=== PATIENT | female | born 1955 | race Caucasian/White ===

== ENCOUNTER 2016-11-07 16:35 | Emergency (ER) | payer BC ==
--- OUTSIDE RECORDS SUMMARY | 2016-11-07 17:43 | XMS REPORT | Continuity of Care Document ---
:1955 Author Organization [facility] [place] [address] Care Team Providers Name Role Phone Iris Tesfaye Primary Care Provider [phone] Source Comments This disclosure is being made pursuant to the [employer] program and maynot contain all information available regarding this patient.[facility] Active Allergies and Adverse Reactions Allergen Noted Date Severity Reactions Comments Cephalexin 09/26/2016 Low Rash Erythromycin 09/26/2016 Unknown Metoprolol Succinate Er 09/26/2016 Unknown Motrin 09/26/2016 Unknown Statins 09/26/2016 Unknown Current Medications Be aware that medications may not be up to date as of this document. Alwaysverify current medications with the patient. Prescription Sig. Disp. Refills Start Date End Date Status acetaminophen-codeine Take 1 tablet Active (TYLENOL #3) 300-30 MG by mouth every per tablet 6 (six) hours as needed for Pain. allopurinol (ZYLOPRIM) Take 100 mg by Active 100 MG tablet mouth daily. Alpha-Lipoic Acid 200 MG Take 200 mg by Active CAPS mouth daily. ALPRAZolam (XANAX) 0.5 MG Take 0.5 mg by Active tablet mouth nightly as needed for Sleep. 1/2-1 tab twice daily prn aspirin 81 MG tablet Take 81 mg by Active mouth daily. B Complex Vitamins (B Take 1 tablet Active COMPLEX PO) by mouth daily. DULoxetine (CYMBALTA) 60 Take 60 mg by Active MG capsule mouth daily. furosemide (LASIX) 40 MG Take 40 mg by Active tablet mouth daily. gabapentin (NEURONTIN) Take 300 mg by Active 300 MG capsule mouth. Take 2 capsules three times daily glimepiride (AMARYL) 4 MG Take 4 mg by Active tablet mouth. Take one-half tablet twice daily hydrALAZINE (APRESOLINE) Take 100 mg by Active 100 MG tablet mouth 2 (two) times daily. hydrochlorothiazide Take 25 mg by Active (HYDRODIURIL) 25 MG mouth daily. tablet canagliflozin (INVOKANA) Take 100 mg by Active 100 MG tablet mouth every morning before breakfast. potassium chloride CR Take 8 mEq by Active (MICRO-K) 8 MEQ CR mouth daily. capsule insulin glargine (LANTUS) Inject 24 Units Active 100 UNIT/ML injection - into the skin vial nightly. metFORMIN (GLUCOPHAGE) Take 500 mg by Active 500 MG tablet mouth 2 (two) times daily with meals. Multiple Chew by mouth Active Vitamins-Minerals daily. (MULTIVITAMINS) CHEW nystatin (MYCOSTATIN) Apply Active cream topically 2 (two) times daily. to affected area. Continue until rash has resovled for 2-3 days. oxygen Inhale 2 L/min Active into the lungs continuous. Ascorbic Acid (VITAMIN C) Take 500 mg by Active 500 MG tablet mouth daily. ezetimibe (ZETIA) 10 MG Take 10 mg by Active tablet mouth daily. vitamin B-12 Take 500 mcg by Active (CYANOCOBALAMIN) 500 MCG mouth daily. tablet ezetimibe (ZETIA) 10 MG Take 1 tablet 30 tablet 11 10/02/2016 Active tablet by mouth nightly. Active Problems Problem Noted Date Mixed hyperlipidemia 09/27/2016 Essential hypertension 09/27/2016 Morbid obesity with BMI of 50.0-59.9, adult (HCC) 09/27/2016 Uncontrolled type 2 diabetes with neuropathy (HCC) 09/27/2016 Most Recent Encounters Date Type Specialty Providers Description 11/02/2016 Orders Only Endocrinology Lara Lockett, Uncontrolled type 2 MD diabetes with neuropathy (HCC) 10/30/2016 Erroneous Endocrinology Lara Lockett, ERRONEOUS Telephone MD ENCOUNTER--DISREGARD Encounter (Primary Dx) 10/30/2016 Telephone Endocrinology Kelly Guzman, Results PRESSING DEPARTMENT SUPERVISOR 10/20/2016 Telephone Endocrinology Rowena Keita RN 10/02/2016 Refill Family Medicine Va Gaines RMA 09/27/2016 Initial consult Endocrinology Lara Lockett, Uncontrolled type 2 MD diabetes with neuropathy (HCC) (Primary Dx); Morbid obesity with BMI of 50.0-59.9, adult ([facility]); Essential hypertension; Mixed hyperlipidemia 09/26/2016 Abstract Endocrinology Chris Beckett, MEAT PASSER 09/26/2016 Abstract Endocrinology Kelly Guzman LPN 09/26/2016 Abstract Endocrinology Kelly Guzman LPN Immunizations Name Dates Previously Given Next Due Hepatitis B 09/28/1981 INFLUENZA, INACTIVATED, QUADRIVALENT, 3 YEARS AND 03/31/2016 older, single dose syringe/vial Pneumococcal Polysaccharide-23 07/31/2013 Social History Tobacco Use Types Packs/Day Years Used Date Never Smoker Smokeless Tobacco: Never Used Tobacco Cessation:Counseling Given: No Comments: Alcohol Use Drinks/Week oz/Week Comments No Last Filed Vital Signs Vital Sign Reading Time Taken Blood Pressure 116/65 09/27/2016 9:38 AM [employer]BER Pulse 76 09/27/2016 9:38 AM [employer]BER Temperature - - Respiratory Rate - - Height 1.664 m (5' 5.5") 09/27/2016 9:38 AM [employer] Weight 139.254 kg (307 lb) 09/27/2016 9:38 AM [employer]BER Body Mass Index 50.29 09/27/2016 9:38 AM [employer] Oxygen Saturation - - Plan of Care Patient Goal Type Goal Blood Pressure Blood Pressure below 140/90 Result Component HEMOGLOBIN A1C < 7.0 Date Type Specialty Providers Description 02/06/2017 Appointment Endocrinology Lara Lockett MD [address] [place] [address] [phone] (Fax) Health Maintenance Due Date Last Done Comments Lab-Lipids 1955 Eye (Ophthalmology) Exam 11/17/1967 Lab-Urine Microalbumin 11/17/1967 Hepatitis C Screening 11/17/1975 Tetanus/Pertussis (1 - Tdap) 1976 Pap Smear 1978 Colonoscopy 11/17/2007 Mammogram 11/17/2007 Well Adult Visit 11/17/2007 LAB-HgA1C 07/28/2016 04/28/2016 Foot Exam 09/27/2017 09/27/2016 Pneumococcal Medium Risk 19-64 yo Completed 07/31/2013 Influenza Immunization Completed 03/31/2016 Results from Last 3 Months 25 Hydroxy Vitamin D (10/19/2016)
--- OUTSIDE RECORDS SUMMARY | 2016-11-07 17:43 | XMS REPORT | Continuity of Care Document ---
:1955 Author Organization [facility] ([facility]) Address [address] [place] [address] Phone [phone] Care Team Providers Name Role Phone Iris Tesfaye Primary Care Provider [phone] Source Comments This disclosure is being made pursuant to the Care Everywhere program, applicable federal and state laws, and may not contain all informaitonavailable regarding this patient.[facility] ([facility]) Active Allergies and Adverse Reactions Allergen Noted Date Severity Reactions Comments Cephalexin 09/04/2016 Pruritus Erythromycin 09/04/2016 Stomach Pain Ibuprofen 09/04/2016 OTHER Lactic acid build. Metoprolol 09/04/2016 Unknown Prednisone 09/04/2016 OTHER Increased blood sugar. Jenlgwz-Pdv-Udi Reductase 09/04/2016 OTHER Muscle pain Inhibitors Current Medications Prescription Sig. Disp. Refills Start End Status Date Date acetaminophen-codeine Take 1 tablet by Active 300-30 mg per tablet mouth every 6 hours as needed. allopurinol 100 mg Take 100 mg by Active tablet mouth daily. alpha lipoic acid 100 Take 200 mg by Active mg capsule mouth 2 times daily. ALPRAZolam 0.5 mg Take 0.5 mg by Active tablet mouth at bedtime as needed. aspirin 81 mg EC Take 81 mg by Active tablet mouth every evening. DULoxetine 60 mg XR Take 60 mg by Active capsule mouth daily. furosemide 40 mg Take 40 mg by Active tablet mouth daily. gabapentin 300 mg Take 600 mg by Active capsule mouth 3 times daily. glimepiride 4 mg Take 4 mg by Active tablet mouth every evening. hydrALAZINE 100 mg Take 100 mg by Active tablet mouth 2 times daily. hydroCHLOROthiazide 25 Take 25 mg by Active mg tablet mouth daily. canagliflozin Take 100 mg by Active (INVOKANA) 100 mg mouth daily. tablet insulin glargine Inject 27 Units Active (LanTUS) 100 unit/mL subcutaneously injection vial daily. metFORMIN 500 mg Take 1,000 mg by Active tablet mouth 2 times daily. nystatin 100,000 Apply topically 2 Active unit/g cream times daily as needed. ascorbic acid (vitamin Take 1,000 mg by Active C) (VITAMIN C) 500 mg mouth 3 times tablet daily. ezetimibe 10 mg tablet Take 10 mg by Active mouth every evening. cholecalciferol Take 4,000 Units Active (VITAMIN D3) 2,000 by mouth 2 times unit tablet daily. potassium chloride 8 Take 8 mEq by Active mEq XR cap mouth daily. cyanocobalamin Take 1 tablet by Active (vitamin B-12) 2,500 mouth 2 times mcg chew daily. thiamine (VITAMIN B-1) Take 100 mg by Active 100 mg tablet mouth daily. VITAMIN B COMPLEX (B Take 1 capsule by Active COMPLEX PO) mouth daily. NUT.TX.GLUC.INTOLER,LA Take by mouth 2 Active C-FR,SOY (GLUCERNA times daily. THERAPEUTIC NUTRITION PO) HYDROmorphone 2 mg Take 1-2 tablets 60 tablet 0 11/03/19 Active tablet (2-4 mg total) by 17 mouth every 4 hours as needed for pain. docusate 100 mg Take 1 capsule 60 capsule 11 11/04/19 Active capsule (100 mg total) by 17 mouth 2 times daily as needed. sennosides 8.6 mg Take 1 tablet 60 tablet 11 11/04/19 Active tablet (8.6 mg total) by 17 mouth 2 times daily. vitamin B complex Take 1 tablet by Discontinued tablet mouth daily. 017 cyanocobalamin Take 100 mcg by Discontinued (cyanocobalamin) 100 mouth daily. 017 mcg tablet potassium chloride 10 Take 8 mEq by Discontinued mEq XR tablet mouth daily. 017 multivitamin tablet Take 1 tablet by Discontinued mouth daily. 017 oxygen O-15 (O-15 O2) Use by inhalation Discontinued once. 017 potassium gluconate Take 595 mg by Discontinued 595 mg tablet mouth daily. 017 Active Problems Problem Noted Date Abdominal pannus 09/04/2016 BiPAP (biphasic positive airway pressure) dependence 09/04/2016 Hypertension 09/04/2016 Type 2 diabetes mellitus 09/04/2016 Hyperlipemia 09/04/2016 Morbid obesity 09/04/2016 Gout 09/04/2016 JOYCE treated with BiPAP 09/04/2016 Most Recent Encounters Date Type Specialty Providers Description 11/06/2016 Telephone Manager Mobile Rachell Swanson 11/06/2016 Telephone Manager Mobile Rachell Swanson 11/06/2016 Nurse Triage Care Coordination Vicky Borges Chief Comp: TAYLOR Gracia RNintelligence applications Follow-up Call 11/03/2016 Pharmacy Visit 11/01/2016 [facility] Evaristo, Dx: Abdominal pannus - Encounter Inpatient - Adult MD Guy (Primary Dx) 11/03/2016 11/01/2016 Surgery General Surgery ANDRY Loera PANNICULECTOMY MD Guy 10/13/2016 Office Visit Srg Mario Loera Dx: Abdominal apryl Tovar MD (Primary Dx) 09/04/2016 Hospital Anesthesiology Azucena Stearns Chief Comp: Patient Encounter MD Kaylee Reported Reason For Visit 09/04/2016 Office Visit Srg Mario Loera Dx: Abdominal apryl Tovar MD (Primary Dx) 09/04/2016 Anesthesia Event General Surgery Azucena Stearns MD Social History Tobacco Use Types Packs/Day Years Used Date Never Smoker Smokeless Tobacco: Never Used Tobacco Cessation:Counseling Given: Yes Comments: Alcohol Use Drinks/Week oz/Week Comments No Last Filed Vital Signs Vital Sign Reading Time Taken Blood Pressure 129/65 11/03/2016 9:06 AM CDT Pulse 83 11/03/2016 9:06 AM CDT Temperature 36.6 C (97.9 F) 11/03/2016 9:06 AM CDT Respiratory Rate 16 11/03/2016 1:51 PM CDT Height 1.626 m (5' 4") 11/01/2016 5:25 PM CDT Weight 132.3 kg (291 lb 10.7 oz) 11/03/2016 10:00 AM CDT Body Mass Index 50.04 11/03/2016 10:00 AM CDT Oxygen Saturation 93% 11/03/2016 9:06 AM CDT Plan of Care Date Type Specialty Providers Description 11/13/2016 Appointment Srg Guy Acosta MD Chief Comp: Patient [address] [place] [address] [phone] (Fax) Health Maintenance Due Date Last Done Comments HCV Screening 1955 Hepatitis B Vaccine (1 of 3 - Primary Series) 1955 Tdap Vaccine 1968 DIABETIC: Cholesterol 11/17/1975 Diabetic: Hdl 11/17/1975 Diabetic: Ldl 11/17/1975 DIABETIC: Microalbumin 11/17/1975 DIABETIC: Triglycerides 11/17/1975 MMR Vaccine 11/17/1975 Td Vaccine 11/17/1975 Pneumococcal Vaccine (1 of 1 - PPSV23) 1976 Cervical Cancer Screening 11/17/1987 Mammogram 1997 Colonoscopy 2007 DIABETIC: Foot Exam 09/04/2016 DIABETIC: Retinal Eye Exam 09/04/2016 Influenza Vaccine: Seasonal (Season Ended) 2017 DIABETIC: Hemoglobin A1C 03/04/2017 09/04/2016 Procedures from Last 3 Months Procedure Name Priority Date/Time Associated Diagnosis Comments PLAS PANNICULECTOMY 11/01/2016 11:14 AM CDT Abdominal pannus Case Notes 2nd case start Results from Last 3 Months BLOOD GLUCOSE, BEDSIDE (11/03/2016 11:27 AM)Only the most recent of12 resultswithin the time period is included. Component Value Range Glucose, Accu-Chek 213(H) 65-99 mg/dL Specimen Blood, capillary CHEST - AP/PA (11/02/2016 9:21 PM) Impressions Findings / Impression: Patchy airspace disease in the bilateral bases/paramedian lungs, which is typical for atelectasis although underlying infection cannot be excluded. Short-term interval follow-up radiograph may be useful to demonstrate resolution. Possible small bilateral effusions. No large pneumothoraces. Mild cardiomegaly, without pulmonary vascular congestion. Narrative Procedure: CHEST - AP/PA Technique: Portable AP chest radiograph Comparison: None Clinical Indication: Postoperative fever Procedure Note Simon, Incoming Imaging Results - SunNov 03, 2016 10:18 AM CDT Procedure: CHEST - AP/PA Technique: Portable AP chest radiograph Comparison: None Clinical Indication: Postoperative fever IMPRESSION Findings / Impression: Patchy airspace disease in the bilateral bases/paramedian lungs, which is typical for atelectasis although underlying infection cannot be excluded. Short-term interval follow-up radiograph may be useful to demonstrate resolution. Possible small bilateral effusions. No large pneumothoraces. Mild cardiomegaly, without pulmonary vascular congestion. URINALYSIS (11/02/2016 8:46 PM) Component Value Range Color, Urine Yellow Straw, Pale Yellow, Yellow, Clear, None Clarity, Urine Clear Clear pH, Urine 5.0 <9.0 Glucose, Urine 4+(A) Negative Blood, Urine Negative Negative Ketones, Urine Negative Negative Protein, Urine Negative Negative Urobilinogen, Urine Normal Normal Bilirubin, Urine Negative Negative Leukocyte Esterase, Urine Negative Negative Nitrite, Urine Negative Negative Spec [place], Urine 1.010 1.000-1.030 Specimen Urine CREATININE-URINE, RANDOM (11/02/2016 8:26 AM) Component Value Range Creatinine, Urine, Random 233.4 mg/dL Specimen Urine SODIUM-URINE,RANDOM (11/02/2016 8:26 AM) Component Value Range Sodium, Urine, Random <10 mEq/L Specimen Urine BASIC METABOLIC PANEL W/ CALCIUM (CHEM 8) (11/02/2016 7:47 AM) Component Value Range Sodium 137 135-145 mEq/L Potassium 4.3 3.5-5.0 mEq/L Chloride 97 95-107 mEq/L CO2 28 22-29 mEq/L BUN 28(H) 10-20 mg/dL Creatinine 1.2(H)Comment: 0.5-1.0 mg/dL Creatinine switched to enzymatic method on 12/06/2010.GFR equation switched to IDMS-traceable MDRD equation on 12/06/2010. Calculated GFR values are not valid in clinical settings where serum creatinine is changing. Glucose 166(H)Comment: 65-99 mg/dL The Expert Committee on the Diagnosis and Classification of Diabetes has defined impaired fasting glucose as greater than or equal to 100 mg/dL but less than 126 mg/dL.(Diabetes Care 28 (Suppl 1)S41,2005) Calcium 8.2(L) 8.5-10.5 mg/dL Anion Gap 12 mEq/L Calculated GFR 46(L) >60 mL/min/1.73 m2 Specimen Blood CBC (COMPLETE BLOOD COUNT) (11/02/2016 7:47 AM)Only the most recent of2 resultswithin the time period is included. Component Value Range WBC Count 16.0(H) 3.7-10.5 K/MM3 RBC Count 3.61(L) 4.00-5.20 M/MM3 Hemoglobin 11.0(L) 11.9-15.5 g/dL Hematocrit 35 35-47 % MCV (Mean Corpuscular Volume) 97 82-99 FL MCH (Mean Corpuscular Hemoglobin) 31 25-35 PG MCHC (Mean Corpuscular Hemoglobin Concentration) 32 32-36 % Platelet Count 262 150-400 K/MM3 MPV (Mean Platelet Volume) 9.4 9.4-12.3 FL RBC Dist Width-STD 50.8(H) 36.4-46.3 FL RBC Distrib Width 14.5 9.0-14.5 % Nucleated RBC 0 /100 WBC Specimen Whole Blood DIFFERENTIAL (11/01/2016 12:21 PM) Component Value Range % Neutrophils-Auto Diff 63.0 % Neutrophils-Auto Diff 3770 2414-2336 /MM3 % Lymphocytes-Auto Diff 27.5 % Lymphocytes-Auto Diff 1897 943-0402 /MM3 % Monocytes-Auto Diff 6.8 % Monocytes-Auto Diff 410 130-860 /MM3 % Eosinophils-Auto Diff 1.7 % Eosinophils-Auto Diff 100 40-390 /MM3 % Basophils 0.7 % Basophils-Auto Diff 40 10-136 /MM3 % Immature Granulocytes-Auto Diff 0.3 % Immature Granulocytes-Auto Diff 20 /MM3 Specimen Whole Blood CBC (COMPLETE BLOOD COUNT) (11/01/2016 12:21 PM) Component Value Range WBC Count 6.0 3.7-10.5 K/MM3 RBC Count 3.27(L) 4.00-5.20 M/MM3 Hemoglobin 10.2(L) 11.9-15.5 g/dL Hematocrit 31(L) 35-47 % MCV (Mean Corpuscular Volume) 96 82-99 FL MCH (Mean Corpuscular Hemoglobin) 31 25-35 PG MCHC (Mean Corpuscular Hemoglobin Concentration) 33 32-36 % Platelet Count 201 150-400 K/MM3 MPV (Mean Platelet Volume) 9.6 9.4-12.3 FL RBC Dist Width-STD 48.9(H) 36.4-46.3 FL RBC Distrib Width 13.9 9.0-14.5 % Nucleated RBC 0 /100 WBC Specimen Whole Blood TYPE AND SCREEN (BLOOD TYPE(ABORH) AND RBC ANTIBODY SCREEN) (11/01/2016 12:21 PM ) Component Value Range ABORH O Positive Specimen Expiration Date 2016-11-04 Antibody Screen Negative Specimen Blood CBC WITH DIFFERENTIAL (11/01/2016 12:21 PM) Specimen Whole Blood Narrative The following orders were created for panel order CBC WITH DIFFERENTIAL. Procedure Abnormality Status --------- ------ CBC (COMPLETE BLOOD COUNT)[[id number]] AbnormalFinal result DIFFERENTIAL[[id number]] Final result Please view results for these tests on the individual orders. HEMOGLOBIN A1C (09/04/2016 1:11 PM) Component Value Range Hemoglobin A1c 7.8(H)Comment: 4.8-6.0 % Glycemic Control Guidelines: Non-diabetic <6% Goal <7% Therapeutic Action >8% Estimated Average Glucose 177Comment: mg/dL The estimated average glucose (eAG) calculated from the HbA1c changed on 18/03.See Laboratory Bulletins in the Department of Pathology Laboratory Services Handbook for a full discussion.Not e that the new calculated glucose will now be lower.The A1c result is unchanged. Specimen Whole Blood
--- NOTE | 2016-11-07 18:00 | ERNOTE ---
Medical Problem HPI - General Chief Complaint: Screening, Suture/Wound Time Seen by Provider: 11/07/16 17:35 Source: patient, family Exam Limitations: no limitations - Immun/Allergies/Home Medications Immunizations: IMMUNIZATION HX Immunizations Up to Date Yes History of Influenza Vaccine Yes Hx Pneumococcal Vaccination Yes Allergies/Adverse Reactions: Allergies Rnggzoe-Ksh-Eub Reductase Inhibitor Allergy (Severe, Verified 11/07/16 17:22) Other muscle cramps cephalexin Allergy (Mild, Verified 11/07/16 17:27) Hives ibuprofen Adverse Reaction (Intermediate, Verified 11/07/16 17:22) Other lactic acid build up azithromycin Adverse Reaction (Mild, Verified 11/07/16 17:21) Nausea erythromycin base Adverse Reaction (Mild, Verified 11/07/16 17:27) Nausea prednisone Adverse Reaction (Mild, Verified 11/07/16 17:22) Other hyperglycemia - History of Present History Narrative: Patient had a recent recent Panniculectomy done at [facility] and ahead for Hussain-Han drains put in place. Drain #1 and now appears to be nonfunctional although the other 4 drains were only having trace amounts of serosanguineous fluid from them. Pt denies any complaint, she is simply concerned that the drain is no longer working. Timing: constant Review of Systems - Review of Systems Constitutional: Present: See HPI EYE: Present: no symptoms reported ENT: Present: no symptoms reported Respiratory: Present: no symptoms reported Cardiology: Present: no symptoms reported Gastrointestinal/Abdominal: Present: other - recent surgery on her pannus Genitourinary: Present: no symptoms reported Musculoskeletal: Present: no symptoms reported Skin: Present: no symptoms reported Neurological: Present: no symptoms reported Endocrine: Present: no symptoms reported Hematologic/Lymphatic: Present: no symptoms reported Psych: Present: no symptoms reported - Patient's Past Medical History Patient History - Medical: Diabetes Type 2 Insulin Dependent, Obesity Patient History - Cardiac/Respiratory: Hypertension, Hyperlipidemia, CPAP/BiPAP Home Use Patient History - Cancer: Breast Patient History - Surgical Procedures: Cancer Surgery, Cholecystectomy, T & A Additional Info: recent panniculectomy Patient History - Other: None - Social History Living Situations: home Abuse History: No History of abuse Psych History: Hx of Anxiety, Hx of Depression Smoking Status: Never smoker Have you smoked in the past 12 months: No Do you dip or chew tobacco: No Alcohol Use: none Drug Use: none - Immunizations Immunizations Up to Date: Yes Hx Pneumococcal Vaccination: Yes History of Influenza Vaccine: Yes Physical Exam - Physical Exam General Appearance: Present: wd/wn, alert, no apparent distress Eye Exam: Normal inspection: bilateral, PERRL: bilateral Ears, Nose, Throat: Present: normal ENT inspection, H, normal pharynx Neck: Present: normal inspection, nontender Respiratory: Present: no respiratory distress, normal breath sounds, no accessory muscle use, chest nontender, lungs clear Cardiovascular/Chest: Present: regular rate, rhythm, no murmur, normal peripheral pulses Gastrointestinal/Abdominal: Present: normal bowel sounds, nontender, nondistended, soft, no organomegaly, other - healing wound sites without any infection noted. Rectal Exam: Present: deferred Back Exam: Present: normal inspection, normal range of motion Extremity Exam: Present: normal inspection, non-tender, no edema, normal range of motion Neurological Exam: Present: alert, oriented, normal mood/affect Skin Exam: Present: normal color, warm/dry Lymphatic Exam: Present: no adenopathy ED Progress - Vital Signs Patient's Vital Signs:: I have reviewed the patient's vital signs. Vital Signs: Vital Signs 11/07/16 17:15 Temperature 36 C L Pulse Rate 89 Respiratory 16 Rate Blood Pressure 125/65 O2 Sat by Pulse 89 L Oximetry - Progress/Reassessment Chief Complaint: Screening, Suture/Wound Plan - Plan Plan: The drain tube appears to be nearly pulled out, however it was nearly done draining anyway. We will leave it out and have her talk to the of [place] about pulling it out the small remaining distance. Departure - Departure Clinical Impression: Post-operative complication Qualifiers: Surgical complication system/body Area: skin Surgical complication type: other Qualified Code(s): L76.82 - Other postprocedural complications of skin and subcutaneous tissue Disposition: Home self-care Instructions: Tunneled Catheter Insertion, Care After Referrals: Sebastian Middleton MD [Primary Care Provider] -
[2016-11-07 18:47] VITALS: BP 122/65
== END 2016-11-07 18:09 | disposition home or self-care (01) ==
LOC: ER 16:35
DX: L76.82 Other postprocedural complications of skin and subcutaneous tissue (principal); Z85.3 Personal history of malignant neoplasm of breast

== ENCOUNTER 2017-03-25 20:19 | Emergency (ER) | payer BC ==
[2017-03-25 20:38] VITALS: BP 148/75
[2017-03-25] MEDS ORDERED: HYDROcodone/ACETAMINOPHEN 1 EACH TABLET PO ONE (21:41)
[2017-03-25] MEDS ORDERED: HYDROcodone/ACETAMINOPHEN 1 EACH TABLET ONE (21:45)
--- NOTE | 2017-03-25 22:27 | ERNOTE ---
Lower Extremity HPI - Narrative Date of Service: 03/25/17 - General Lower Extremities Pain: hip: right, leg: right, knee: right Time Seen by Provider: 03/25/17 21:15 Source: patient Exam Limitations: no limitations - Immun/Allergies/Home Medications Immunizations: IMMUNIZATION HX Immunizations Up to Date Yes History of Influenza Vaccine No Hx Pneumococcal Vaccination Yes Allergies/Adverse Reactions: Allergies Allergy/AdvReac Type Severity Reaction Status Date / Time Egblzwq-Arb-Cty Reductase Allergy Severe Other Verified 11/07/16 17:22 Inhibitor cephalexin Allergy Mild Hives Verified 11/07/16 17:27 ibuprofen AdvReac Intermediate Other Verified 11/07/16 17:22 azithromycin AdvReac Mild Nausea Verified 11/07/16 17:21 erythromycin base AdvReac Mild Nausea Verified 11/07/16 17:27 prednisone AdvReac Mild Other Verified 11/07/16 17:22 metoprolol AdvReac Unknown Other Verified 03/25/17 20:38 Home Medications: HOME MEDICATIONS ALPRAZolam [Xanax] 0.5 mg PO HS PRN 03/25/17 [Last Taken Unknown] Allopurinol [Zyloprim (Allopurinol)] 100 mg PO DAILY 03/25/17 [Last Taken Unknown] Alpha Lipoic Acid 100 mg PO DAILY 03/25/17 [Last Taken Unknown] Ascorbic Acid [Vitamin C] 500 mg PO DAILY 03/25/17 [Last Taken Unknown] Aspirin 81 mg PO DAILY 03/25/17 [Last Taken Unknown] Canagliflozin [Invokana] 100 mg PO DAILY 03/25/17 [Last Taken Unknown] Capsaicin 42.5 gm TP BID 03/25/17 [Last Taken Unknown] Cholecalciferol [Vitamin D] 2,000 unit PO DAILY 03/25/17 [Last Taken Unknown] Cyanocobalamin (Vitamin B-12) [Vitamin B-12] 2,000 mcg PO DAILY 03/25/17 [Last Taken Unknown] Cyclobenzaprine HCl 5 - 10 mg PO TID PRN #30 tablet 03/25/17 [Last Taken Unknown ] Duloxetine HCl [Cymbalta] 60 mg PO DAILY 03/25/17 [Last Taken Unknown] Ezetimibe 10 mg PO DAILY 03/25/17 [Last Taken Unknown] Furosemide [Lasix] 40 mg PO DAILY 03/25/17 [Last Taken Unknown] Gabapentin 300 mg PO TID 03/25/17 [Last Taken Unknown] Glimepiride 4 mg PO HS 03/25/17 [Last Taken Unknown] Hydrochlorothiazide [Hydrodiuril] 25 mg PO DAILY 03/25/17 [Last Taken Unknown] Insulin Glargine,Hum.rec.anlog [Lantus Solostar] 32 unit SQ DAILY 03/25/17 [ Last Taken Unknown] Nystatin 15 gm TP BID 03/25/17 [Last Taken Unknown] Potassium 8 meq PO DAILY 03/25/17 [Last Taken Unknown] Pravastatin Sodium 5 mg PO DAILY 03/25/17 [Last Taken Unknown] Thiamine HCl [Vitamin B-1] 100 mg PO DAILY 03/25/17 [Last Taken Unknown] Vit B1 Mn/B2/B3/B5/B6/B12/C/FA [B Complex with Vitamin C Tab] 1 each PO DAILY [Last Taken Unknown] hydrALAZINE HCL [Hydralazine HCl] 100 mg PO BID 03/25/17 [Last Taken Unknown] metFORMIN HCL [Glucophage] 1,000 mg PO BID 03/25/17 [Last Taken Unknown] - Pain Score Pain Score #1 Pain Score: 8 - History of Present Illness Narrative: 61yo, F, presents to ER for evaluation of pain to RLE, which has been present x1 week. She reports pain to both R. hip and R. knee that radiates down her RLE. She notes R. knee to feel "froze up", which has occurred in the past. She has had good relief in the past with chiropractic adjustments to the knee. She is also having pain in the R. lower leg, which she describes as a "burning, shooting" pain. Pain worsens with straightening of the R. knee. She denies any CP, SOB, edema to lower leg. Method of Injury: Reports: other - no recent fall, but does report hx of multiple falls in the past Modifying Factors - (Improves): Reports: pain medication, rest Modifying Factors - (Worsens): Reports: movement Associated Symptoms: Reports: popping sensation - R. knee. Denies: dizzy/light headedness, headache, weakness, chest pain, vomiting/diarrhea Review of Systems - Review of Systems Constitutional: Absent: fever, chills, weakness, fatigue, malaise Respiratory: Absent: shortness of breath, cough, wheezing Cardiology: Absent: chest pain, palpitations, syncope, edema Gastrointestinal/Abdominal: Absent: nausea, vomiting Musculoskeletal: Present: muscle pain - R. lower leg, joint pain - R. knee, R. hip. Absent: joint swelling Skin: Absent: rash, other - redness Neurological: Absent: weakness, numbness, tingling - Patient's Past Medical History Patient History - Medical: Diabetes Type 2 Insulin Dependent, Obesity Patient History - Cardiac/Respiratory: Hypertension, Hyperlipidemia, Home O2 Use , CPAP/BiPAP Home Use Patient History - Cancer: No Hx of Cancer Patient History - Surgical Procedures: Cholecystectomy, T & A, Other Patient History - Other: None LMP (females 10-50): Menopausal - Social History Living Situations: home Abuse History: No History of abuse Psych History: Hx of Anxiety, Hx of Depression Alcohol Use: none Drug Use: none - Immunizations Immunizations Up to Date: Yes Hx Pneumococcal Vaccination: Yes History of Influenza Vaccine: No Physical Exam - Physical Exam General Appearance: Present: wd/wn, alert, no apparent distress Respiratory: Present: no respiratory distress, normal breath sounds. Absent: rales, rhonchi, wheezing Cardiovascular/Chest: Present: regular rate, rhythm. Absent: no murmur Peripheral Pulses: N=norm/S=strong/W=weak/B=bound/A=absent: Dorsalis-pedis (R): Normal Extremity Exam: Present: normal inspection, decreased range of motion - slightly decreased ROM on flexion of R. knee, bony tenderness - along R. medial and lateral knee. Absent: pedal edema, calf tenderness, joint redness, joint swelling, extremity edema Neurological Exam: Present: alert, oriented ED Progress - Date and Time Seen: Date and Time: 03/25/17 22:47 Reviewed labs and xray results with pt and spouse, along with discharge POC. - Results and Orders Patient's Lab Results:: I have reviewed the patient's lab results. - Vital Signs Patient's Vital Signs:: I have reviewed the patient's vital signs. Vital Signs: Vital Signs 03/25/17 03/25/17 20:34 20:39 Temperature 36.8 C 36.8 C Pulse Rate 77 77 Respiratory 16 16 Rate Blood Pressure 148/75 148/75 O2 Sat by Pulse 92 92 Oximetry - X-Ray X-Ray #1 X-Ray: knee Interpretation: Interp. by me X-ray Comments: degenerative changes to R. knee, no acute osseous abnormalities X-Ray #2 X-Ray: hip Interpretation: Interp. by me X-ray Comments: no acute osseous abnormality, degenerative changes noted to R. hip - Progress/Reassessment Chief Complaint: Lower Extremity Pain/ Injury Departure Clinical Impression: Muscle strain Degenerative arthritis of right knee Qualifiers: Osteoarthritis type: primary Qualified Code(s): M17.11 - Unilateral primary osteoarthritis, right knee - Departure Disposition: Home self-care Condition: Good Instructions: Osteoarthritis, Muscle Strain, [id number] Additional Instructions: Continue to use home pain medications (take as directed) as needed for pain Do not take muscle relaxer (cyclobenzaprine) at same time as your pain medication Wear your CPAP if resting after your muscle relaxer or pain medicine Ice or heat as needed for pain Follow up with your doctor for recheck in 1-2 weeks. Follow up sooner if symptoms worsen Prescriptions: Cyclobenzaprine HCl 5 - 10 mg PO TID PRN #30 tablet PRN Reason: Muscle Pain
[2017-03-25] MEDS ORDERED: CYCLOBENZAPRINE HCL 10 MG TABLET PO ONE (22:43)
[2017-03-25] MEDS ORDERED: CYCLOBENZAPRINE HCL 10 MG TABLET ONE (22:45)
== END 2017-03-25 22:55 | disposition home or self-care (01) ==
LOC: ER 20:19
DX: S86.911A Strain of unspecified muscle(s) and tendon(s) at lower leg level, right leg, initial encounter (principal); M17.11 Unilateral primary osteoarthritis, right knee; E11.9 Type 2 diabetes mellitus without complications; Z79.4 Long term (current) use of insulin; E78.5 Hyperlipidemia, unspecified; I10 Essential (primary) hypertension; F41.9 Anxiety disorder, unspecified; F32.9 Major depressive disorder, single episode, unspecified

== ENCOUNTER 2017-04-12 16:41 | Emergency (ER) | payer BC ==
[2017-04-12] MEDS ORDERED: NALOXONE HCL 1 MG/1 ML SYRG ONE ×2 (16:49→18:04)
[2017-04-12 16:54] VITALS: BP 128/50
[2017-04-12] MEDS ORDERED: NALOXONE HCL 1 MG/1 ML SYRG IV ONE ×3 (16:54→18:09)
[2017-04-12] MEDS ORDERED: NORMAL SALINE 1,000 ML IV ONE ×2 (17:00→17:40)
[2017-04-12 17:11] LABS: Hematocrit 33.1 % (37.0-47.0); Hemoglobin 10.1 gm/dL (12.5-16.0); Mean Cell Volume 92.2 fl (78-100); Mean Corpuscular Hemoglobin 28.1 pg (27-31); Mean Corpuscular Hgb Conc 30.5 g/dl (32-36); Mean Platelet Volume 9.4 fl (6.0-9.5); Platelet Count 242 K/mm3 (150-450); Red Blood Count 3.59 M/mm3 (4.2-5.4); Red Cell Distribution Width 17.7 % (11.5-14.0); White Blood Count 27.1 K/mm3 (4.0-10.5)
[2017-04-12 17:14] LABS: Total Cells Counted 100
[2017-04-12 17:26] LABS: Band 1 % (0-2.0); Immature Granulocyte 3 (0-1); Lymphocyte 11 % (20-51); Monocyte 5 % (0-9); Neutrophil 80 % (42-75); Neutrophil # 21.7 K/mm3 (1.3-6.0); Platelet Estimate Normal (NORMAL)
[2017-04-12 17:27] LABS: RBC Morphology Normal (NORMAL)
[2017-04-12 17:28] LABS: Toxic Granulation 1+
[2017-04-12 17:31] LABS: Troponin I 0.679 ng/ml (0.00-0.10)
[2017-04-12 17:32] LABS: Anion Gap 24.5 mmol/L (6.8-13.8); BUN/Creatinine Ratio 10.2 (9.0-21.6); Bilirubin, Total 0.6 mg/dL (0.0-1.1); CKMB 8.1 ng/mL (0.0-9.0); Ca. Corrected For Albumin 8.3 mg/dL (8.4-10.2); Calcium * 7.8 mg/dL (7.9-10.9); Carbon Dioxide 19.4 mmol/L (24-32.6); Potassium 5.9 mmol/L (3.4-4.6); Total Protein 6.7 gm/dL (6.2-8.2)
--- NOTE | 2017-04-12 17:35 | ERNOTE ---
Neuro HPI ER Record Time Seen by Provider: 04/12/17 16:59 Source: family Exam Limitations: no limitations - history is per spouse as patient is Immunizations: IMMUNIZATION HX Immunizations Up to Date Yes History of Influenza Vaccine More Information Required Hx Pneumococcal Vaccination More Information Required Allergies/Adverse Reactions: Allergies Allergy/AdvReac Type Severity Reaction Status Date / Time Orolspq-Jeg-Eqa Reductase Allergy Severe Other Verified 04/12/17 16:56 Inhibitor cephalexin Allergy Mild Hives Verified 04/12/17 16:56 ibuprofen AdvReac Intermediate Other Verified 04/12/17 16:56 azithromycin AdvReac Mild Nausea Verified 04/12/17 16:56 erythromycin base AdvReac Mild Nausea Verified 04/12/17 16:56 prednisone AdvReac Mild Other Verified 04/12/17 16:56 metoprolol AdvReac Unknown Other Verified 04/12/17 16:56 Home Medications: HOME MEDICATIONS ALPRAZolam [Xanax] 0.5 mg PO HS PRN 03/25/17 [Last Taken Unknown] Allopurinol [Zyloprim (Allopurinol)] 100 mg PO DAILY 03/25/17 [Last Taken Unknown] Alpha Lipoic Acid 100 mg PO DAILY 03/25/17 [Last Taken Unknown] Ascorbic Acid [Vitamin C] 500 mg PO DAILY 03/25/17 [Last Taken Unknown] Aspirin 81 mg PO DAILY 03/25/17 [Last Taken Unknown] Canagliflozin [Invokana] 100 mg PO DAILY 03/25/17 [Last Taken Unknown] Capsaicin 42.5 gm TP BID 03/25/17 [Last Taken Unknown] Cholecalciferol [Vitamin D] 2,000 unit PO DAILY 03/25/17 [Last Taken Unknown] Cyanocobalamin (Vitamin B-12) [Vitamin B-12] 2,000 mcg PO DAILY 03/25/17 [Last Taken Unknown] Cyclobenzaprine HCl 5 - 10 mg PO TID PRN #30 tablet 03/25/17 [Last Taken Unknown ] Duloxetine HCl [Cymbalta] 60 mg PO DAILY 03/25/17 [Last Taken Unknown] Ezetimibe 10 mg PO DAILY 03/25/17 [Last Taken Unknown] Furosemide [Lasix] 40 mg PO DAILY 03/25/17 [Last Taken Unknown] Gabapentin 300 mg PO TID 03/25/17 [Last Taken Unknown] Glimepiride 4 mg PO HS 03/25/17 [Last Taken Unknown] Hydrochlorothiazide [Hydrodiuril] 25 mg PO DAILY 03/25/17 [Last Taken Unknown] Insulin Glargine,Hum.rec.anlog [Lantus Solostar] 32 unit SQ DAILY 03/25/17 [ Last Taken Unknown] Nystatin 15 gm TP BID 03/25/17 [Last Taken Unknown] Potassium 8 meq PO DAILY 03/25/17 [Last Taken Unknown] Pravastatin Sodium 5 mg PO DAILY 03/25/17 [Last Taken Unknown] Thiamine HCl [Vitamin B-1] 100 mg PO DAILY 03/25/17 [Last Taken Unknown] Vit B1 Mn/B2/B3/B5/B6/B12/C/FA [B Complex with Vitamin C Tab] 1 each PO DAILY [Last Taken Unknown] hydrALAZINE HCL [Hydralazine HCl] 100 mg PO BID 03/25/17 [Last Taken Unknown] metFORMIN HCL [Glucophage] 1,000 mg PO BID 03/25/17 [Last Taken Unknown] - History of Present Illness Narrative: This patient had a breast reduction surgery 48 hours ago at [facility]. Patient was discharged from the [facility] yesterday at noon. Spouse states that that is the last time he noticed her being alert and oriented. Her less at 1600 he administered 30 mg of morphine to the patient for postop pain. Today he brings patient in for altered mental status. Review of Systems - Narrative Narrative: Unable to get review of systems as patient is initially obtunded however after administration of Narcan 0.2 mg IV patient is awake alert but she mumbles her speech and she can only state to state and statements she can only state "I'm scared" and "where am I" - Patient's Past Medical History Patient History - Medical: Diabetes Type 2 Insulin Dependent, Obesity Patient History - Cardiac/Respiratory: Hypertension, Hyperlipidemia, Home O2 Use , CPAP/BiPAP Home Use, Other Patient History - Cancer: No Hx of Cancer Patient History - Surgical Procedures: Cholecystectomy, T & A, Other Patient History - Other: None LMP (females 10-50): Menopausal - Social History Living Situations: home Abuse History: No History of abuse Psych History: Hx of Anxiety, Hx of Depression Smoking Status: Never smoker Have you smoked in the past 12 months: No Alcohol Use: none Drug Use: none - Immunizations Immunizations Up to Date: Yes Hx Pneumococcal Vaccination: More Information Required to Determine History of Influenza Vaccine: More Information Required to Determine Physical Exam - Physical Exam General Appearance: Present: other - H and is obese her eyes are open she looks at me and tracks me when I ask her to squeeze my hand with her hands she makes a feeble attempt at doing so she mumbles sentences Head Exam: Present: normal inspection, no evidence of injury Ears, Nose, Throat: Present: normal ENT inspection, other - oral mucous appears very dry. Neck: Present: normal inspection Respiratory: Present: other - bandages applied with 2 Hussain-Han drains to the chest bandage was not opened up to examine the site. Cardiovascular/Chest: Present: regular rate, rhythm, no murmur, normal peripheral pulses Gastrointestinal/Abdominal: Present: other - abdomen is morbidly obese examination is challenging but barely feels slightly distended and tense patient does not give any indication that she is in pain Extremity Exam: Present: normal inspection, normal range of motion Neurological Exam: Present: disoriented to time, other - initially patient is somnolent but I can speak with her and she slightly opens her eyes she does not speak. Immediately Narcan 0.2 mg IV was administered patient immediately woke up and started mumbling and stating to sentences. She looks around she looks at her she is able to squeeze fingers however she is only mumbling to sentences. ED Progress - Results and Orders Patient's Lab Results:: I have reviewed the patient's lab results. - Vital Signs Patient's Vital Signs:: I have reviewed the patient's vital signs. Vital Signs: Vital Signs 04/12/17 16:45 Pulse Rate 89 Respiratory 16 Rate Blood Pressure 128/50 O2 Sat by Pulse 92 Oximetry - EKG EKG read: Interp. by me - CT/Ultrasound CT/Ultrasound Narrative: Head CT was ordered and results were read by radiologist - Progress/Reassessment Chief Complaint: Altered Mental Status Plan - Plan Plan: This is a 61-year-old female status post breast reduction surgery postop day #2. patient initially came in for altered mental status and being extremely somnolent patient's test results reveal the patient has metabolic acidosis with an elevated troponin of 0.679. Shortly after arrival to this examiner administered Narcan 0.2 mg and patient's mental status improved in that she was awake however still mumbling not coherently. patient became more somnolent after an hour and subsequently Narcan 0.2 mg was repeated and the patient was even more awake and remained awake. However she continued to be confused and mumbling nonsensically. 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 Dr. Leila Cunningham with consultation to this patient and after presentation both agreed that it would be in the patient's best interest to follow up and be transferred immediately to [facility] for continuity of care and to follow-up with her surgeon and team of intensivists. I then contacted Dr. Cruz at [facility] and he accepted the patient to the medical ICU patient will be flown out to the medical ICU at [facility]. Her vitals remained stable Departure Clinical Impression: Metabolic acidosis Altered mental status Qualifiers: Altered mental status type: unspecified Qualified Code(s): R41.82 - Altered mental status, unspecified - Departure Disposition: [facility] Condition: Serious
[2017-04-12] MEDS ORDERED: NORMAL SALINE 1,000 ML IV PRN (17:41)
[2017-04-12] MEDS ORDERED: LEVOFLOXACIN/D5W 500 MG/100 ML BAG IV SCH (17:45)
[2017-04-12 19:10] LABS: Urine Appearance Clear; Urine Bacteria 4+; Urine Bilirubin Negative (NEGATIVE); Urine Blood 25 /ul (NEGATIVE); Urine Color Yellow; Urine Ketone Negative (NEGATIVE); Urine Nitrite Negative (NEGATIVE); Urine Protein 100 mg/dL (NEGATIVE); Urine RBC None Seen /hpf (0-5); Urine Specific Gravity >=1.030 SP.GR. (1.005-1.010); Urine Urobilinogen Normal (NORMAL); Urine WBC 0-5 /hpf (0-5); Urine pH 5.5 pH (5.0-7.0)
[2017-04-12 19:21] LABS: Cocaine Ur Negative (NEGATIVE); Urine Barbiturate Negative (NEGATIVE); Urine PCP Negative (NEGATIVE); Urine THC Negative (NEGATIVE)
[2017-04-12 19:28] LABS: Urine Benzodiazepines Positive (NEGATIVE); Urine Opiates Positive (NEGATIVE)
== END 2017-04-12 18:30 | disposition short-term general hospital (02) ==
LOC: ER 16:41
PROC: 0T9B70Z Drainage of Bladder with Drainage Device, Via Natural or Artificial Opening (ICD-10-PCS; principal; 2017-04-12)
PROC: 4A033R1 Measurement of Arterial Saturation, Peripheral, Percutaneous Approach (ICD-10-PCS; 2017-04-12)
DX: E87.2 Acidosis (principal); R41.82 Altered mental status, unspecified

== ENCOUNTER 2018-06-22 11:56 | Inpatient (IN) ==
[2018-06-22] MEDS ORDERED: HYDROcodone/ACETAMINOPHEN 1 EACH TABLET PO ONE (12:25)
[2018-06-22] MEDS ORDERED: GABAPENTIN 100 MG CAPSULE PO ONE (12:25)
--- NOTE | 2018-06-22 12:45 | ERNOTE ---
Dyspnea - Date Date of Service: 06/22/18 - General Presenting Symptoms: shortness of breath Time Seen by Provider: 06/22/18 12:12 Source: patient, family, RN notes reviewed Exam Limitations: no limitations - Immun/Allergies/Home Medications Immunizations: IMMUNIZATION HX Immunizations Up to Date Yes History of Influenza Vaccine No Hx Pneumococcal Vaccination More Information Required Allergies/Adverse Reactions: Allergies Lnitgjf-Ujc-Cif Reductase Inhibitor Allergy (Severe, Verified 06/22/18 12:10) Other muscle cramps cephalexin Allergy (Mild, Verified 06/22/18 12:10) Hives ibuprofen Adverse Reaction (Intermediate, Verified 06/22/18 12:10) Other lactic acid build up azithromycin Adverse Reaction (Mild, Verified 06/22/18 12:10) Nausea erythromycin base Adverse Reaction (Mild, Verified 06/22/18 12:10) Nausea prednisone Adverse Reaction (Mild, Verified 06/22/18 12:10) Other hyperglycemia metoprolol Adverse Reaction (Unknown, Verified 06/22/18 12:10) Other Home Medications: HOME MEDICATIONS ALPRAZolam [Xanax] 0.5 mg PO HS PRN 03/25/17 [Last Taken Unknown] Allopurinol [Zyloprim (Allopurinol)] 100 mg PO DAILY 03/25/17 [Last Taken Unknown] Ascorbic Acid [Vitamin C] 500 mg PO DAILY 03/25/17 [Last Taken Unknown] Aspirin 81 mg PO DAILY 03/25/17 [Last Taken Unknown] Cholecalciferol [Vitamin D] 2,000 unit PO DAILY 03/25/17 [Last Taken Unknown] Duloxetine HCl [Cymbalta] 60 mg PO DAILY 03/25/17 [Last Taken Unknown] Furosemide [Lasix] 40 mg PO DAILY 03/25/17 [Last Taken Unknown] Gabapentin 300 mg PO TID 03/25/17 [Last Taken Unknown] Hydrochlorothiazide [Hydrodiuril] 25 mg PO DAILY 03/25/17 [Last Taken Unknown] Insulin Glargine,Hum.rec.anlog [Lantus Solostar] 48 unit SQ DAILY 03/25/17 [Last Taken Unknown] Potassium 8 meq PO DAILY 03/25/17 [Last Taken Unknown] hydrALAZINE HCL [Hydralazine HCl] 100 mg PO BID 03/25/17 [Last Taken Unknown] DULoxetine HCL [Cymbalta] 30 mg PO HS 04/25/18 [Last Taken Unknown] Insul NPH Hu Rec/Ins Rg Hu Rec [Novolin 70/30] 14 units SC DAILY 04/25/18 [Last Taken Unknown] - History of Present Illness Narrative: Edward is a 62 year old female brought to the ED by her for dyspnea that began approximately a month ago. This began while they were vacationing somewhere with a high altitude. She initially attributed the shortness of breath to this, but she also felt that she had gotten a cold from the children she was around. She reports that she was sick in bed for a week when they returned home. She has worn 2 liters of oxygen at night for several years, but required 6 l iters continuously when she became ill. She reports that she desats into the 70's at home without the oxygen. She is supposed to wear a bipap at night, but she has been unable to do so since she has been ill because of anxiety. She is diabetic and has not been checking her blood glucose. She has not been taking her diuretic either. She states "I just haven't been taking very good care of myself." Frequency of episodes: Reports: no prior episodes Modifying Factors - (Improves): Reports: oxygen, rest Modifying Factors (Worsens): Reports: activity Associated Symptoms-Dyspnea: Reports: sweating, chest pain/discomfort, cough, weakness, anxiety. Denies: fever/chills, wheezing, leg/calf pain, ankle/leg swelling, loss of appetite Prior Treatment: Denies: recently seen Review of Systems - Review of Systems Constitutional: Present: See HPI, fatigue, malaise, decreased activity level EYE: Absent: eye pain, eye discharge ENT: Present: nose congestion. Absent: ear pain, nasal drainage, sore throat Respiratory: Present: shortness of breath, cough. Absent: wheezing Cardiology: Present: chest pain. Absent: syncope Gastrointestinal/Abdominal: Absent: nausea, vomiting, diarrhea, eating less Genitourinary: Absent: frequency, dysuria Musculoskeletal: Present: muscle pain, joint pain Skin: Absent: rash, lesions Neurological: Absent: headache, dizziness/light-headedness Endocrine: Present: no symptoms reported Hematologic/Lymphatic: Absent: easy bruising, easy bleeding Psych: Present: anxiety Medical History (Last Updated 06/22/18 @ 13:59 by Ora Charles NP) Acute renal failure required dialysis for 2 mos. 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 Smoking Status Never smoker Have you smoked in the past 12 No months Do you dip or chew tobacco No Abuse History No History of abuse Psych History Hx of Anxiety,Hx of Depression Alcohol Use none Drug Use none No Social History Section defined Physical Exam - Physical Exam General Appearance: Present: alert, no apparent distress, obese, other - disheveled Head Exam: Present: normal inspection Eye Exam: Normal inspection: bilateral Ears, Nose, Throat: Present: normal ENT inspection, normal pharynx Neck: Present: normal inspection, nontender, supple Respiratory: Present: no respiratory distress, accessory muscle use - with minor exertion, decreased breath sounds, expiration (prolonged) Cardiovascular/Chest: Present: regular rate, rhythm, no murmur, normal peripheral pulses Extremity Exam: Present: normal inspection, non-tender, normal range of motion. Absent: pedal edema, calf tenderness Neurological Exam: Present: alert, oriented, normal mood/affect, no motor/sensory deficits Skin Exam: Present: warm/dry, pallor ED Progress - Results and Orders Patient's Lab Results:: I have reviewed the patient's lab results. - Vital Signs Patient's Vital Signs:: I have reviewed the patient's vital signs. Vital Signs: Vital Signs 06/22/18 12:02 06/22/18 12:14 06/22/18 12:25 Pulse Rate 88 90 89 Respiratory Rate 16 18 19 Blood Pressure 183/90 H 183/90 H 162/93 H O2 Sat by Pulse Oximetry 94 94 94 - EKG EKG: NSR EKG read: Reviewed by me - X-Ray X-Ray #1 X-Ray: chest Interpretation: Interp. by me X-ray Comments: Left lower lobe consolidation/infiltrate - Progress/Reassessment Chief Complaint: Dyspnea Progress:: Improved Plan - Plan Plan: Lactic acid is elevated at 3.1 but patient has no other SIRS criteria indicative of sepsis. She becomes hypoxic when not wearing oxygen - which she normally only requires at night at 2 liters. She is currently on 4 liters with an oxygen saturation of 93%. Based on her PSI score, she is intermediate risk and could be admitted to observation status. The patient wishes to do this, rather than to attempt outpatient treatment. Dr. Pantoja was contacted and the patient will be observation status on med/surg. Blood cultures are pending. She has been started on IV Levaquin. Departure Clinical Impression: Hypoxia Pneumonia Qualifiers: Pneumonia type: due to unspecified organism Laterality: left Lung location: lower lobe of lung Qualified Code(s): J18.1 - Lobar pneumonia, unspecified organism - Departure Disposition: Still a patient Condition: Stable
[2018-06-22 12:52] LABS: Hematocrit 43.5 % (37.0-47.0); Hemoglobin 13.6 gm/dL (12.5-16.0); Mean Cell Volume 93.8 fl (78-100); Mean Corpuscular Hemoglobin 29.3 pg (27-31); Mean Corpuscular Hgb Conc 31.3 g/dl (32-36); Mean Platelet Volume 9.3 fl (8-12.5); Neutrophil # 4.9 K/mm3 (1.3-6.0); Neutrophil % 69.5 % (42-75.0); Platelet Count 204 K/mm3 (150-450); Red Blood Count 4.64 M/mm3 (4.2-5.4); Red Cell Distribution Width 13.7 % (11.5-14.0); White Blood Count 7.1 K/mm3 (4.0-10.5)
[2018-06-22 12:57] LABS: Urine Appearance Clear (CLEAR); Urine Bilirubin Negative (NEGATIVE); Urine Blood Negative /ul (NEGATIVE); Urine Color Yellow; Urine Ketone Negative (NEGATIVE)
[2018-06-22 12:59] LABS: Urine Nitrite Negative (NEGATIVE); Urine Protein Negative (NEGATIVE); Urine Urobilinogen Normal (NORMAL)
[2018-06-22 13:03] LABS: Urine WBC 0-5 /hpf (0-5)
[2018-06-22 13:06] LABS: Urine Bacteria None Seen; Urine RBC None Seen /hpf (0-5)
[2018-06-22 13:07] LABS: Troponin I Less than 0.017 ng/mL (0.00-0.10)
[2018-06-22 13:09] LABS: ALT 20 U/L (19-67); AST 16 U/L (0-48); Albumin * 3.2 gm/dl (3.4-5.0); Alkaline Phosphatase * 107 U/L (50-170); Anion Gap 7.5 mmol/L (6.8-13.8); BNP * 83 pg/mL (5-205); BUN/Creatinine Ratio 13.2 (9.0-21.6); Bilirubin, Total 0.2 mg/dL (0.0-1.1); Blood Urea Nitrogen 14 mg/dL (3-23); Ca. Corrected For Albumin 9.4 mg/dL (8.4-10.2); Calcium * 9.1 mg/dL (7.9-10.9); Chloride 99 mmol/L (97-106); Glucose * 376 mg/dL (70-110); Potassium 3.5 mmol/L (3.4-4.6); Sodium 136 mmol/L (132-142); Total Protein 7.3 gm/dL (6.2-8.2)
[2018-06-22] MEDS ORDERED: LEVOFLOXACIN IN DEXTROSE 5 % 750 MG/150 ML BAG IV ONE (13:46)
[2018-06-22] MEDS ORDERED: ALPRAZolam 0.5 MG TABLET PO PRN (16:33)
[2018-06-22] MEDS: ALBUTEROL SULFATE/IPRATROPIUM 3 ML NEBU IH SCH ×2 (16:37→18:05)
[2018-06-22] MEDS ORDERED: GABAPENTIN 100 MG CAPSULE ONE (17:19)
[2018-06-22] MEDS: HYDROcodone/ACETAMINOPHEN 1 EACH TABLET PO SCH (17:22)
[2018-06-22] MEDS: HYDROCHLOROTHIAZIDE 25 MG TABLET PO SCH (17:23)
[2018-06-22] MEDS ORDERED: GABAPENTIN 600 MG TABLET PO SCH (18:00)
[2018-06-22] MEDS ORDERED: hydrALAZINE HCL 25 MG TABLET ONE (20:47)
[2018-06-22] MEDS ORDERED: HUM INSULIN NPH/REG INSULIN HM 100 UNIT/ML VIAL SC ONE (20:51)
[2018-06-22] MEDS ORDERED: INSUL NPH HU REC/INS RG HU REC 100 UNITS/ML VIAL SC SCH (21:00)
[2018-06-22] MEDS: hydrALAZINE HCL 50 MG TABLET PO SCH (21:04)
[2018-06-22] MEDS: ASPIRIN 81 MG TAB.CHEW PO SCH (21:04)
[2018-06-22] MEDS: INSULIN GLARGINE,HUM.REC.ANLOG 100 UNITS/ML VIAL SC SCH (21:05)
[2018-06-22] MEDS: DULoxetine HCL 30 MG CAPSULE.SA PO SCH (21:11)
--- NOTE | 2018-06-22 23:31 | HP ---
Chief Complaint - Chief Complaint Date of Service: 06/22/18 Time of Service: 15:00 Chief Complaint: Shortness of breath History of Present Illness: Edward is a 62 yo female with Pickwickian Syndrome and chronic respiratory failure with supine position. She typically wears oxygen at 2lpm at night and not when she is up during the day. [place] and returned with progressive shortness of breath and cough. She checks her oxygen levels at home and found her oxygen dropping as low as 70%. She presented to the [facility] ER for evaluation. Chest xray shows evidence of pneumonia in anterior/medial aspect of chest from lateral views. She was given a dose of levaquin in the ER. She continues to feel significantly short of breath more than her baseline and more with activity. Medical History (Last Reviewed 06/22/18 @ 14:44 by Shannon Su RN) Acute renal failure required dialysis for 2 mos. Morbid obesity with BMI of 45.0-49.9, adult Pickwickian syndrome Diabetes 1.5, managed as type 2 Hypercholesteremia Hypertension Septic shock after breast reduction Surgical History: Surgical History (Last Reviewed 06/22/18 @ 14:45 by Shannon Su RN) Status post panniculectomy Hx of breast reduction, elective Hx of cholecystectomy Social History: Patient Lives/Resources Home Utilized Preferred Language Setswana Do you have any spiritism or No cultural preference? Smoking Status Never smoker Have you smoked in the past 12 No months Do you dip or chew tobacco No Abuse History No History of abuse Psych History Hx of Anxiety,Hx of Depression Alcohol Use none Drug Use none No Social History Section defined Review Of Systems (GEN) - Review of Systems Generalized/Overall Review: Present: Weakness, Chills, Fever, Fatigue EENTM: Present: No Symptoms Reported Respiratory: Present: Cough, Shortness of Breath Cardiac: Absent: Chest Pain, Edema, Palpitations Abdominal: Absent: Nausea, Vomiting Genitourinary: Present: No Symptoms Reported Musculoskeletal: Present: No Symptoms Reported Neurological: Present: No Symptoms Reported Skin: Present: No Symptoms Reported Endocrine: Present: No Symptoms Reported Immunizations: IMMUNIZATION HX Immunizations Up to Date Yes History of Influenza Vaccine No Hx Pneumococcal Vaccination More Information Required Allergies/Adverse Reactions: Allergies Allergy/AdvReac Type Severity Reaction Status Date / Time [id number] Reductase Allergy Severe Other Verified 06/22/18 12:10 Inhibitor cephalexin Allergy Mild Hives Verified 06/22/18 12:10 hydromorphone Allergy Verified 06/22/18 14:38 morphine Allergy Verified 06/22/18 14:38 ibuprofen AdvReac Intermediate Other Verified 06/22/18 12:10 azithromycin AdvReac Mild Nausea Verified 06/22/18 12:10 erythromycin base AdvReac Mild Nausea Verified 06/22/18 12:10 prednisone AdvReac Mild Other Verified 06/22/18 12:10 metoprolol AdvReac Unknown Other Verified 06/22/18 12:10 Home Medications: HOME MEDICATIONS ALPRAZolam [Xanax] 0.5 mg PO HS PRN 03/25/17 [Last Taken Unknown] Allopurinol [Zyloprim (Allopurinol)] 100 mg PO DAILY 03/25/17 [Last Taken Unknown] Ascorbic Acid [Vitamin C] 500 mg PO DAILY 03/25/17 [Last Taken Unknown] Aspirin 81 mg PO HS 03/25/17 [Last Taken Unknown] Cholecalciferol [Vitamin D] 2,000 unit PO DAILY 03/25/17 [Last Taken Unknown] Duloxetine HCl [Cymbalta] 60 mg PO DAILY 03/25/17 [Last Taken Unknown] Furosemide [Lasix] 40 mg PO DAILY 03/25/17 [Last Taken Unknown] Gabapentin 600 mg PO 0600,1200,0000 03/25/17 [Last Taken Unknown] Hydrochlorothiazide [Hydrodiuril] 25 mg PO DAILY 03/25/17 [Last Taken Unknown] Insulin Glargine,Hum.rec.anlog [Lantus Solostar] 48 unit SQ HS 03/25/17 [Last Taken Unknown] Potassium 2 tab PO DAILY 03/25/17 [Last Taken Unknown] hydrALAZINE HCL [Hydralazine HCl] 100 mg PO BID 03/25/17 [Last Taken Unknown] DULoxetine HCL [Cymbalta] 30 mg PO HS 04/25/18 [Last Taken Unknown] Insul NPH Hu Rec/Ins Rg Hu Rec [Novolin 70/30] 14 units SC HS 04/25/18 [Last Taken Unknown] Gabapentin [Neurontin] 900 mg PO 1800 06/22/18 [Last Taken Unknown] HYDROcodone/ACETAMINOPHEN [Hydrocodon-Acetaminoph 7.5-325] 1 each PO 0600,1200,1800,0000 11/24/18 [Last Taken Unknown] Exam - Exam Vital Signs: Vital Signs - Last Taken Temp 37.1 C 06/22/18 19:11 Pulse 81 06/22/18 21:04 Resp 20 06/22/18 19:25 BP 160/100 H 06/22/18 21:04 Pulse Ox 91 L 06/22/18 19:25 Constitutional: Present: Alert, Oriented x3, Cooperative, Obese ENT Exam: Present: hearing grossly normal Eye Exam: bilateral eye: normal inspection Respiratory: Present: decreased breath sounds Cardiovascular/Chest: Present: regular rate, rhythm, no murmur Abdomen: Present: Normal bowel sounds, soft, nontender, nondistended Skin Exam: Present: normal color, warm/dry, no cyanosis Appearance: Present: appropriate appearance, appropriate insight Diagnostic Studies: Abnormal Lab Results 06/22/18 06/22/18 06/22/18 Range/Units 12:35 12:35 12:35 MCHC 31.3 L (32-36) g/dl Carbon Dioxide 33.0 H (24-32.6) mmol/L Est GFR (Non-Af Amer) 56 L (60-130) mL/min Random Glucose 376 H (70-110) mg/dL Lactic Acid, Venous 3.1 H* (0.4-2.0) mmol/L Albumin 3.2 L (3.4-5.0) gm/dl Urine Glucose (UA) (NEGATIVE) mg/dL 06/22/18 Range/Units 12:35 MCHC (32-36) g/dl Carbon Dioxide (24-32.6) mmol/L Est GFR (Non-Af Amer) (60-130) mL/min Random Glucose (70-110) mg/dL Lactic Acid, Venous (0.4-2.0) mmol/L Albumin (3.4-5.0) gm/dl Urine Glucose (UA) >=1000 H (NEGATIVE) mg/dL Laboratory Results WBC 7.1 K/mm3 (4.0-10.5) 06/22/18 12:35 RBC 4.64 M/mm3 (4.2-5.4) 06/22/18 12:35 Hgb 13.6 gm/dL (12.5-16.0) 06/22/18 12:35 Hct 43.5 % (37.0-47.0) 06/22/18 12:35 MCV 93.8 fl (78-100) 06/22/18 12:35 MCH 29.3 pg (27-31) 06/22/18 12:35 MCHC 31.3 g/dl (32-36) L 06/22/18 12:35 RDW 13.7 % (11.5-14.0) 06/22/18 12:35 Plt Count 204 K/mm3 (150-450) 06/22/18 12:35 MPV 9.3 fl (8-12.5) 06/22/18 12:35 Immature Gran % (Auto) 0.30 % (0.001-0.429) 06/22/18 12:35 Immature Gran # (Auto) 0.02 K/mm3 (0.000-0.0310) 06/22/18 12:35 Neutrophils % 69.5 % (42-75.0) 06/22/18 12:35 Lymphocytes % 22.7 % (20-51) 06/22/18 12:35 Monocytes % 5.1 % (0.0-9) 06/22/18 12:35 Eosinophils % 1.8 % (0.0-3.0) 06/22/18 12:35 Basophils % 0.6 % (0.0-1.0) 06/22/18 12:35 Nucleated RBC % 0.0 k/mm3 (0-1) 06/22/18 12:35 Neutrophils # 4.9 K/mm3 (1.3-6.0) 06/22/18 12:35 Lymphocytes # 1.60 k/mm3 (1.5-3.5) 06/22/18 12:35 Monocytes # 0.4 k/mm3 (0.0-1.0) 06/22/18 12:35 Eosinophils # 0.1 k/mm3 (0.0-0.7) 06/22/18 12:35 Absolute Basophils 0.0 k/mm3 (0.0-0.1) 06/22/18 12:35 D-Dimer 0.40 ug/mL (0.19-0.49) D 06/22/18 12:35 Sodium 136 mmol/L (132-142) 06/22/18 12:35 Plasma Sodium 140 mmol/L (130-142) 06/22/18 12:35 Potassium 3.5 mmol/L (3.4-4.6) 06/22/18 12:35 Chloride 99 mmol/L (97-106) 06/22/18 12:35 Carbon Dioxide 33.0 mmol/L (24-32.6) H 06/22/18 12:35 Anion Gap 7.5 mmol/L (6.8-13.8) 06/22/18 12:35 BUN 14 mg/dL (3-23) 06/22/18 12:35 Creatinine 1.06 mg/dL (0.4-1.4) 06/22/18 12:35 Est GFR (Non-Af Amer) 56 mL/min (60-130) L 06/22/18 12:35 BUN/Creatinine Ratio 13.2 (9.0-21.6) 06/22/18 12:35 Random Glucose 376 mg/dL (70-110) H 06/22/18 12:35 Lactic Acid, Venous 1.2 mmol/L (0.4-2.0) 06/22/18 15:40 Calcium 9.1 mg/dL (7.9-10.9) 06/22/18 12:35 Calcium Adj for Albumin 9.4 mg/dL (8.4-10.2) 06/22/18 12:35 Total Bilirubin 0.2 mg/dL (0.0-1.1) 06/22/18 12:35 AST 16 U/L (0-48) 06/22/18 12:35 ALT 20 U/L (19-67) 06/22/18 12:35 Alkaline Phosphatase 107 U/L (50-170) 06/22/18 12:35 Troponin I Less than 0.017 ng/mL (0.00-0.10) 06/22/18 12:35 B-Natriuretic Peptide 83 pg/mL (5-205) 06/22/18 12:35 Total Protein 7.3 gm/dL (6.2-8.2) 06/22/18 12:35 Albumin 3.2 gm/dl (3.4-5.0) L 06/22/18 12:35 Urine Color Yellow 06/22/18 12:35 Urine Appearance Clear (CLEAR) 06/22/18 12:35 Urine pH 7.0 pH (5.0-7.0) 06/22/18 12:35 Ur Specific [place] 1.020 SP.GR. (1.005-1.010) 06/22/18 12:35 Urine Protein Negative mg/dL (NEGATIVE) 06/22/18 12:35 Urine Glucose (UA) >=1000 mg/dL (NEGATIVE) H 06/22/18 12:35 Urine Ketones Negative mg/dL (NEGATIVE) 06/22/18 12:35 Urine Blood Negative /ul (NEGATIVE) 06/22/18 12:35 Urine Nitrate Negative (NEGATIVE) 06/22/18 12:35 Urine Bilirubin Negative mg/dl (NEGATIVE) 06/22/18 12:35 Urine Urobilinogen Normal EU/dl (NORMAL) 06/22/18 12:35 Ur Leukocyte Esterase Negative /ul (NEGATIVE) 06/22/18 12:35 Urine RBC None seen /hpf (0-5) 06/22/18 12:35 Urine WBC 0-5 /hpf (0-5) 06/22/18 12:35 Ur Epithelial Cells 0-5 /hpf (0-5) 06/22/18 12:35 Urine Bacteria None seen (NONE) 06/22/18 12:35 Urine Culture Comments No culture indicated 06/22/18 12:35 Assessment/Plan - Narrative Narrative: Edward is a 62 yo female with Pickwickian Syndrome and chronic respiratory failure with nightly oxygen at 2lpm. She has pneumonia based on chest xray and is in a higher need of oxygen than her baseline. Currently she needs oxygen at 2lpm continuous to keep oxygen >89%. She was given IV levaquin in the ER, will continue this antibiotic. Will give nebulizer treatment, cornet, and incentive spirometry. Will admit to observation at this time and attempt to wean oxygen needs to baseline. If unable to wean to baseline may need additional hospitalization to treat and wean. - Assessment/Plan (1) Acute and chronic respiratory failure with hypoxia Problem: Acute (2) Pneumonia Problem: Acute Qualifiers: Pneumonia type: due to unspecified organism Laterality: left Lung location: lower lobe of lung Qualified Code(s): J18.1 - Lobar pneumonia, unspecified organism
[2018-06-23] MEDS: GABAPENTIN 600 MG TABLET PO SCH ×4 (00:12→23:32)
[2018-06-23] MEDS: HYDROcodone/ACETAMINOPHEN 1 EACH TABLET PO SCH ×5 (00:12→23:32)
[2018-06-23] MEDS: ALBUTEROL SULFATE/IPRATROPIUM 3 ML NEBU IH SCH ×4 (00:17→18:38)
[2018-06-23] MEDS: hydrALAZINE HCL 50 MG TABLET PO SCH ×2 (08:04→20:24)
[2018-06-23] MEDS: HYDROCHLOROTHIAZIDE 25 MG TABLET PO SCH (08:05)
[2018-06-23] MEDS: DULoxetine HCL 30 MG CAPSULE.SA PO SCH ×2 (08:05→20:25)
[2018-06-23] MEDS: FUROSEMIDE 40 MG TABLET PO SCH (08:06)
[2018-06-23] MEDS: CHOLECALCIFEROL 1,000 UNIT CAPSULE PO SCH (08:07)
[2018-06-23] MEDS: ALLOPURINOL 100 MG TABLET PO SCH (08:07)
[2018-06-23] MEDS: ASCORBIC ACID 500 MG TABLET PO SCH (08:07)
[2018-06-23] MEDS ORDERED: POTASSIUM 8 MEQ PO SCH (09:00)
[2018-06-23] MEDS: GABAPENTIN 300 MG CAPSULE PO SCH (18:30)
--- NOTE | 2018-06-23 19:47 | PN ---
Subjective - Date and Time Seen Date: 06/23/18 Time: 19:47 Subjective Narrative: Edward continues to be short of breath with activity. She has been using 2lpm of oxygen continuous, which she does not do at home. She was ambulated in the [place] and oxygen dropped to 84% on room air with activity. She was placed back on oxygen at 2lpm and oxygen improved to >90%. She reports feeling a little better today. Denies fever, chills, nausea, or vomiting. Objective - Vitals Vitals: Last Vital Signs Temp 37.1 C 06/23/18 18:17 Pulse 88 06/23/18 18:48 Resp 20 06/23/18 18:48 BP 161/93 H 06/23/18 18:17 Pulse Ox 92 L 06/23/18 18:38 - Exam Constitutional: Present: Alert, Oriented x3, Cooperative ENT Exam: Present: hearing grossly normal Respiratory: Present: respiratory distress - Patient tachypnea and visually short of breath with activity., decreased breath sounds Cardiovascular/Chest: Present: regular rate, rhythm, no murmur Abdomen: Present: Normal bowel sounds, soft, nontender, nondistended Skin Exam: Present: normal color, warm/dry, no cyanosis Assessment/Plan Plan Narrative: Edward continues to have acute on chronic respiratory failure. Her oxygen drops to 84% on room air with activity which is not her baseline. She gets significantly short of breath with respiratory distress. she is unable to be discharged to home today. Will make acute inpatient status. Continue Levaquin, nebulizers, cornet, and incentive spirometer. Will continue oxygen continuous at 2lpm and work to wean to her baseline of just use at night. - Problems/Diagnosis (1) Acute and chronic respiratory failure with hypoxia Problem: Acute (2) Pneumonia Problem: Acute Qualifiers: Pneumonia type: due to unspecified organism Laterality: left Lung location: lower lobe of lung Qualified Code(s): J18.1 - Lobar pneumonia, unspecified organism
[2018-06-23] MEDS: ASPIRIN 81 MG TAB.CHEW PO SCH (20:24)
[2018-06-23] MEDS: INSULIN GLARGINE,HUM.REC.ANLOG 100 UNITS/ML VIAL SC SCH (20:29)
[2018-06-23] MEDS ORDERED: HUM INSULIN NPH/REG INSULIN HM 100 UNIT/ML VIAL SC SCH (21:00)
[2018-06-24] MEDS: ALBUTEROL SULFATE/IPRATROPIUM 3 ML NEBU IH SCH ×4 (00:10→18:13)
[2018-06-24] MEDS: GABAPENTIN 600 MG TABLET PO SCH ×2 (05:29→11:02)
[2018-06-24] MEDS: HYDROcodone/ACETAMINOPHEN 1 EACH TABLET PO SCH ×3 (05:29→17:34)
[2018-06-24] MEDS: DULoxetine HCL 30 MG CAPSULE.SA PO SCH (08:39)
[2018-06-24] MEDS: hydrALAZINE HCL 50 MG TABLET PO SCH (08:39)
[2018-06-24] MEDS: HYDROCHLOROTHIAZIDE 25 MG TABLET PO SCH (08:40)
[2018-06-24] MEDS: FUROSEMIDE 40 MG TABLET PO SCH (08:40)
[2018-06-24] MEDS: ASCORBIC ACID 500 MG TABLET PO SCH (08:41)
[2018-06-24] MEDS: CHOLECALCIFEROL 1,000 UNIT CAPSULE PO SCH (08:42)
[2018-06-24] MEDS: ALLOPURINOL 100 MG TABLET PO SCH (08:43)
[2018-06-24] MEDS ORDERED: PATIENT'S OWN MEDICATION 1 DOSE DOSE PO SCH (09:00)
[2018-06-24] MEDS ORDERED: LEVOFLOXACIN 750 MG TABLET PO SCH (11:00)
--- NOTE | 2018-06-24 14:10 | DS ---
(1) Pneumonia Problem: Acute Qualifiers: Pneumonia type: due to unspecified organism Laterality: left Lung location: lower lobe of lung Qualified Code(s): J18.1 - Lobar pneumonia, unspecified organism (2) Chronic respiratory failure with hypoxia Problem: Chronic (3) Acute and chronic respiratory failure with hypoxia Problem: Resolved Description of Stay: Edward is a 62 yo female with Chronic Respiratory Failure secondary to Pickwickian Syndrome. This was worsened by pneumonia. She was treated with Levaquin and breathing treatments. She required an increase of her prior 2lpm of oxygen at night to 3lpm of oxygen continuous. She is feeling better. She will be continued on levaquin for 5 more days starting tomorrow. She will follow up with her primary care physician. Procedures Performed: none Results and Findings: Pending Mircobiology Results 06/22/18 12:52 Blood Blood Culture - Preliminary NO GROWTH AFTER 48 HOURS 06/22/18 12:35 Blood Blood Culture - Preliminary NO GROWTH AFTER 48 HOURS Lab Pending Results 06/22/18 12:35: WBC 7.1, RBC 4.64, Hgb 13.6, Hct 43.5, MCV 93.8, MCH 29.3, MCHC 31.3 L, RDW 13.7, Plt Count 204, MPV 9.3, Immature Gran % (Auto) 0.30, Immature Gran # (Auto) 0.02, Neutrophils % 69.5, Lymphocytes % 22.7, Monocytes % 5.1, Eosinophils % 1.8, Basophils % 0.6, Nucleated RBC % 0.0, Neutrophils # 4.9, Lymphocytes # 1.60, Monocytes # 0.4, Eosinophils # 0.1, Absolute Basophils 0.0 06/22/18 12:35: Sodium 136, Plasma Sodium 140, Potassium 3.5, Chloride 99, Carbon Dioxide 33.0 H, Anion Gap 7.5, BUN 14, Creatinine 1.06, Est GFR (Non-Af Amer) 56 L, BUN/Creatinine Ratio 13.2, Random Glucose 376 H, Calcium 9.1, Calcium Adj for Albumin 9.4, Total Bilirubin 0.2, AST 16, ALT 20, Alkaline Phosphatase 107, Troponin I Less than 0.017, B-Natriuretic Peptide 83, Total Protein 7.3, Albumin 3.2 L 06/22/18 12:35: D-Dimer 0.40 D 06/22/18 12:35: Lactic Acid, Venous 3.1 H* 06/22/18 12:35: Urine Color Yellow, Urine Appearance Clear, Urine pH 7.0, Ur Specific [place] 1.020, Urine Protein Negative, Urine Glucose (UA) >=1000 H, Urine Ketones Negative, Urine Blood Negative, Urine Nitrate Negative, Urine Bilirubin Negative, Urine Urobilinogen Normal, Ur Leukocyte Esterase Negative, Urine RBC None seen, Urine WBC 0-5, Ur Epithelial Cells 0-5, Urine Bacteria None seen, Urine Culture Comments No culture indicated 06/22/18 15:40: Lactic Acid, Venous 1.2 Discharge Location: Home Disposition: Home self-care Condition: Fair Discharge Activity: Activity as tolerated Discharge Diet: General/regular food Referrals: Aniceto Middleton MD [Primary Care Provider] - One Week Problem Oriented Discharge Instructions to Patient/Family: Community-Acquired Pneumonia, Adult, [id number] Additional Patient Instructions (free text): Home Oxygen Script written for 3lpm with activity and rest. She was tested in hospital and with ambulation she dropped to 80% on room air and required 3lpm of oxygen via NC to keep sats 88% or greater during activity. Prescriptions (Any new or edited meds): Levofloxacin [Levaquin] 750 mg PO DAILY@1100 #5 tablet Complete Home Medications List: Complete Home Medication List: ALPRAZolam [Xanax] 0.5 mg PO HS PRN 03/25/17 Allopurinol [Zyloprim] 100 mg PO DAILY 03/25/17 Ascorbic Acid [Vitamin C] 500 mg PO DAILY 03/25/17 Aspirin 81 mg PO HS 03/25/17 Cholecalciferol [Vitamin D] 2,000 unit PO DAILY 03/25/17 Duloxetine HCl [Cymbalta] 60 mg PO DAILY 03/25/17 Furosemide [Lasix] 40 mg PO DAILY 03/25/17 Gabapentin 600 mg PO 0600,1200,0000 03/25/17 Hydrochlorothiazide [Hydrodiuril] 25 mg PO DAILY 03/25/17 Insulin Glargine,Hum.rec.anlog [Lantus Solostar] 48 unit SQ HS 03/25/17 Potassium 2 tab PO DAILY 03/25/17 hydrALAZINE HCL [Hydralazine HCl] 100 mg PO BID 03/25/17 DULoxetine HCL [Cymbalta] 30 mg PO HS 04/25/18 Insul NPH Hu Rec/Ins Rg Hu Rec [Novolin 70] 14 units SC HS 04/25/18 Gabapentin [Neurontin] 900 mg PO 1800 06/22/18 HYDROcodone/ACETAMINOPHEN [Hydrocodone-Acetamin 7.5-325] 1 each PO 060 0,1200,1800,0000 06/22/18 Gabapentin [Neurontin] 600 mg PO 0600,1200,2359 tablet 06/24/18 Gabapentin [Neurontin] 900 mg PO 1800 capsule 06/24/18 Levofloxacin [Levaquin] 750 mg PO DAILY@1100 #5 tablet 06/24/18
[2018-06-24] MEDS: GABAPENTIN 300 MG CAPSULE PO SCH (17:35)
[2018-06-24 19:30] VITALS: BP 129/88
== END 2018-06-24 18:45 | disposition home or self-care (01) | DRG 193 ==
LOC: MS 11:56 → ER 11:56 → INTOOBSV 13:48 → OBSVTOIN 13:48 → MS 14:25
PROVIDERS: ADMIT Family Medicine; ATTEND Family Medicine
CPT/HCPCS: 36415; 71020; 71046; 80053; 81001; 83519; 83605; 83880; 84484; 85025; 85379; 87040; 90686; 93005; 94640; 94660; 94664; 96365; 99285